=== PATIENT | female | born 1950 | race Caucasian/White ===

== ENCOUNTER → 2023-03-14 | Outpatient (CLI) | payer OTHER ==
[~2023-03-14] MED LIST: DIPYRIDAMOLE; GEMF-19; ROSU40TA
== END | disposition home or self-care (01) ==
LOC: XYW 10:17
DX: I65.23 Occlusion and stenosis of bilateral carotid arteries (principal)
CPT/HCPCS: 93886

== ENCOUNTER → 2023-04-23 | Outpatient (CLI) | payer OTHER ==
[~2023-04-23] MED LIST changes: -GEMF-19; +GEMF-66; -ROSU40TA; +ROSU40TA81
[2023-04-23 13:14] LABS: Basophils # (auto) 0 10 ^3/uL (0-0.2); Basophils % (auto) 0.6 % (0.0-2.0); Eosinophils # (auto) 0.2 10 ^3/uL (0-0.8); Eosinophils % (auto) 2.8 % (0.0-7.0); Hematocrit 38.6 % (36.0-46.0); Hemoglobin 12.8 g/dL (12.2-16.2); Lymphocytes # (auto) 1.7 10 ^3/uL (0.4-5.4); Lymphocytes % (auto) 25.3 % (10.0-50.0); Mean Corpuscular Hemoglobin 28.8 pg (28.0-32.0); Mean Corpuscular Hgb Conc. 33.2 g/dL (32.0-36.0); Mean Corpuscular Volume 86.7 fL (80.0-100.0); Monocytes # (auto) 0.5 10 ^3/uL (0-1.3); Monocytes % (auto) 6.8 % (0.0-12.0); Neutrophils # (auto) 4.4 10 ^3/uL (1.6-8.6); Neutrophils % (auto) 64.5 % (37.0-80.0); Nucleated Red Blood Cells % 0.1 %; Red Blood Cells 4.45 10^6/uL (4.0-5.20); White Blood Cell 6.8 10^3/uL (4.4-10.8)
[2023-04-23 14:01] LABS: Albumin 4.1 g/dL (3.4-5.0); Potassium 4.4 mmol/L (3.5-5.1)
[2023-04-23 14:05] LABS: BUN/Creatinine Ratio 25.3 (10.0-20.0); Bilirubin, Total 0.4 mg/dL (0.2-1.0); Total Protein 7.4 g/dL (6.4-8.2); Uric Acid 3.5 mg/dL (2.6-6.0)
[2023-04-23 14:29] LABS: Urine Blood Negative /uL (Negative); Urine Specific Gravity 1.021 (1.001-1.035)
== END | disposition home or self-care (01) ==
LOC: LAB 12:50
PROVIDERS: ATTEND Family Medicine
DX: Z12.11 Encounter for screening for malignant neoplasm of colon (principal); I73.9 Peripheral vascular disease, unspecified; E78.5 Hyperlipidemia, unspecified; E79.0 Hyperuricemia without signs of inflammatory arthritis and tophaceous disease; E88.81 Metabolic syndrome and other insulin resistance; N32.81 Overactive bladder; D69.2 Other nonthrombocytopenic purpura; I12.9 Hypertensive chronic kidney disease with stage 1 through stage 4 chronic kidney disease, or unspecified chronic kidney disease; N18.2 Chronic kidney disease, stage 2 (mild)
CPT/HCPCS: 36415; 80053; 80061; 81003; 83036; 84443; 84550; 85025

== ENCOUNTER → 2023-07-26 | Outpatient (CLI) | payer OTHER ==
[2023-07-26 14:55] LABS: Potassium 4.6 mmol/L (3.5-5.1)
[2023-07-26 14:56] LABS: Calcium 9.4 mg/dL (8.7-10.4)
[2023-07-26 15:01] LABS: BUN/Creatinine Ratio 18.1 (10.0-20.0)
[2023-07-26 15:03] LABS: Albumin 5.3 g/dL (3.2-4.8); Phosphorus 3.4 mg/dL (2.4-5.1)
== END | disposition home or self-care (01) ==
LOC: LAB 13:45
PROVIDERS: ATTEND Family Medicine
DX: I10 Essential (primary) hypertension (principal); E78.5 Hyperlipidemia, unspecified; R80.0 Isolated proteinuria; E79.0 Hyperuricemia without signs of inflammatory arthritis and tophaceous disease; E88.81 Metabolic syndrome and other insulin resistance
CPT/HCPCS: 36415; 80061; 80069; 82043; 83036